=== PATIENT | male | born 1935 | race Caucasian/White ===

== ENCOUNTER 2022-04-17 12:20 | Outpatient (CLI) | payer MEDICARE, OTHER | END 2022-04-17 12:21 | disposition home or self-care (01) | LOC: CSHRAD 12:20 | PROVIDERS: ATTEND Internal Medicine Hematology & Oncology | DX: R05.1 Acute cough (principal); C80.1 Malignant (primary) neoplasm, unspecified | CPT/HCPCS: 71046 ==

== ENCOUNTER 2023-08-02 10:29 | Outpatient (CLI) | payer MEDICARE, OTHER ==
[~2023-08-02 10:29] MED LIST: Iopamidol 370 76% 100 ML VIAL ONE
== END 2023-08-02 10:30 | disposition home or self-care (01) ==
LOC: CSHCT 10:29
PROVIDERS: ATTEND Family Medicine
DX: I48.0 Paroxysmal atrial fibrillation (principal); Z95.818 Presence of other cardiac implants and grafts
CPT/HCPCS: 71275; Q9967